=== PATIENT | male | born 1995 | race Caucasian/White ===

== ENCOUNTER 2017-08-28 10:07 | Emergency (ER) | payer OTHER ==
[~2017-08-28] VITALS: Ht 167.6 cm; Wt 72.6 kg
[2017-08-28 10:07] VITALS: BP 117/78
[2017-08-28] MEDS ORDERED: ACETAMINOPHEN 325 MG TABLET PO ONE (11:30)
[2017-08-28] MEDS ORDERED: ACETAMINOPHEN ES 500 MG TABLET ONE (11:34)
--- NOTE | 2017-08-28 12:19 | NUR ---
recheck temp 98.2 orally.
== END 2017-08-28 12:53 | disposition home or self-care (01) ==
LOC: ER 10:12
DX: J06.9 Acute upper respiratory infection, unspecified (principal)
CPT/HCPCS: 71045; 99283; A4606; Z7610